=== PATIENT | male | born 1950 | race African-American/Black ===

== ENCOUNTER 2017-07-25 11:59 | Emergency (ER) | payer MEDICARE, OTHER ==
[~2017-07-25] VITALS: Ht 172.7 cm; Wt 68.0 kg
--- NOTE | 2017-07-25 12:26 | PHYS DOC ---
Past Medical History Past Medical History: High Cholesterol, Hypertension Past Surgical History: Other Additional Past Surgical Histo: rt side rib, rt tib/fib, neck surgery Smoking: Cigarettes, Greater than 1 pack/day Alcohol Use: Occasionally Drug Use: None Adult General Chief Complaint Chief Complaint: PAIN CONTROL HPI HPI Pleasant 67-year-old -Dutch male with history of hypertension and hyperlipidemia and a prior surgery to his neck which I suspect was a neck fusion who complains of neck pain for last 6 months. Patient has been under the care of his primary care physician and doctor [place] as been treating his pain with oral Lortab for the last 5-6 months. Patient's pain is described as a dull achy pain with radiation to the right side of the neck to the shoulder and arm. It is worse with movements of the forearm. It is better with immobilization and narcotics although the narcotics are not working as well as a head in the past. He denies any numbness and tingling to the forearm hand or arm. He denies any weakness within the mohel of the hand. He says the pain will work him up from sleep and is increased with repetitive motion and utilization. Patient admits for 5 years ago he sustained an injury to his neck after a fall of a ladder. He is an intermittent problems with his neck since that time. He denies any chest pain, shortness of breath, recent trauma, night sweats, weight loss, URI symptoms, cough, travel, recent antibodies or history of blood clots. Review of Systems Review of Systems Constitutional: Denies fever or chills [] Eyes: Denies change in visual acuity, redness, or eye pain [] HENT: Denies nasal congestion or sore throat [] Respiratory: Denies cough or shortness of breath [] Cardiovascular: No additional information not addressed in HPI [] GI: Denies abdominal pain, nausea, vomiting, bloody stools or diarrhea [] : Denies dysuria or hematuria [] Musculoskeletal: His main complaint is right-sided neck pain and arm pain. Integument: Denies rash or skin lesions [] Neurologic: Denies headache, focal weakness or sensory changes [] Endocrine: Denies polyuria or polydipsia [] Current Medications Current Medications Current Medications Medications (Trade) Dose Ordered Sig/Danyell Start Time Stop Time Status Last Admin Dose Admin Hydromorphone HCl (Dilaudid) 1 mg 1X ONCE 10/19/17 12:45 07/25/17 12:46 DC 07/25/17 12:52 1 MG Ketorolac Tromethamine (Toradol Im) 60 mg 1X ONCE 07/25/17 12:45 07/25/17 12:46 DC 07/25/17 12:52 60 MG Allergies Allergies Allergies Coded Allergies Type Severity Reaction Last Updated Verified No Known Drug Allergies 08/03/14 No Physical Exam Physical Exam Vital signs recorded on the chart at this time patient admitted to be hypertensive without hypoxia tachypnea or fever. Constitutional: Well developed, well nourished, in quietly in the bed pain is 9 of 10 HENT: Normocephalic, atraumatic, bilateral external ears normal, oropharynx moist, no oral exudates, nose normal. [] Eyes: PERRLA, EOMI, conjunctiva normal, no discharge. [] Neck: He has decreased range of motion likely secondary to the prior surgery and muscle pain. She has no obvious trauma to his neck, no rashes or changes in skin color or soft tissue swelling. Cardiovascular:Heart rate regular rhythm, no murmur [] Lungs & Thorax: Bilateral breath sounds clear to auscultation [] Skin: Warm, dry, no erythema, no rash. [] Back: Impression is tenderness to palpation over the rhomboid major and minor muscle groups as well as the superior belly of the trapezius muscle. There is no midline tenderness to palpation of the neck. Extremities: he has no obvious swelling no cyanosis no clubbing no edema. Patient has brisk capillary refill +2 peripheral pulses are intact +2 at the ulnar and radial arteries. Patient has normal sensation to light touch and proprioception to 2 point discretion of his hand. Patient does have increasing pain and throbbing within the forearms and hands with a positive Tinel's and Phalen sign. Neurologic: Alert and oriented X 3, normal motor function, normal sensory function, no focal deficits noted. [] Psychologic: Affect normal, judgement normal, mood normal. [] Current Patient Data Vital Signs Vital Signs Date Time Temp Pulse Resp B/P (MAP) Pulse Ox O2 Delivery O2 Flow Rate FiO2 07/25/17 12:52 16 96 Room Air 07/25/17 12:05 98.1 71 170/77 (108) 98.1 EKG EKG [] Radiology/Procedures Radiology/Procedures [] [facility] [address] [place] [address] IMAGING REPORT Signed PATIENT: MIGDALIA ROMANO ACCOUNT: [id number] : 1950 LOCATION: ER AGE: 67 SEX: M EXAM STATUS: REG ER ORD. PHYSICIAN: BRAD GAUTAM MD REASON: neck pain PROCEDURE: CT CERVICAL SPINE WO CONTRAST Indication neck and right arm pain. Axial images of the cervical spine were obtained. Images were reformatted in the coronal and sagittal planes. It should be noted that CT is relatively insensitive evaluating for disc disease in the cervical spine. The lung apices are clear. There is no soft tissue mass seen in the. No acute finding is seen. There is multilevel disc space narrowing. Osteophytes are seen at multiple levels. There is fusion at C4-5. There is slight left bony neural foraminal encroachment at C2-3. There is bilateral bony foraminal encroachment at C3-4. Left greater than right foraminal encroachment is seen at C4-5. Bilateral foraminal encroachment is seen at C5-6. Similarly there is some bilateral foraminal encroachment at C6-7. C7-T1 appears unremarkable. There is some suggested disc bulging at C3-4. No marked bony central canal narrowing is seen at any level. IMPRESSION: Spondylitic changes. There is foraminal encroachment, mild to moderate, at multiple levels as outlined above. An acute finding in the cervical spine is not seen. PQRS Compliance Statement: One or more of the following individualized dose reduction techniques were utilized for this examination: 1. Automated exposure control 2. Adjustment of the mA and/or kV according to patient size 3. Use of iterative reconstruction technique DICTATED and SIGNED BY: PRASAD LARA MD DATE: 07/25/17 6190 CC: SHAWNA SHEFFIELD; BRAD GAUTAM MD ~ Course & Med Decision Making Course & Med Decision Making Pertinent Labs and Imaging studies reviewed. (See chart for details) he presents with neck pain with radiation to the right shoulder and lower arm concerning presentation for possible cervical radiculopathy or impingement syndrome. At this point doubt DVT of the upper extremity or localized nerve entrapment at the brachial plexus. Patient does demonstrate some increased symptoms with Tinel's and Phalen's sign which means there may be a component of carpal tunnel syndrome with his symptoms. Patient's shoulder neck pain is not exacerbated by Spurling's provocative testing. Even his age and prior injury to his neck I will complete a CAT scan of the neck to ensure that there is no bony abnormalities like compression fracture contributing to his symptoms. If symptoms continue I would advise patient to complete an MRI of the neck with undressed to look for ligamentous involvement of his symptoms. [] Dragon Disclaimer Dragon Disclaimer This electronic medical record was generated, in whole or in part, using a voice recognition dictation system. Departure Departure Impression: Primary Impression: Chronic pain Additional Impression: Neck pain, chronic Disposition: 01 HOME, SELF-CARE Referrals: SHAWNA SHEFFIELD (PCP) Patient Instructions: Cervical Fusion, Cervical Sprain Additional Instructions: My discharge plan Follow up: In addition patient is asked to followup with their primary doctor, within a week for followup examination and to address patient's ongoing medical conditions. Patient is advised that in the Emergency Department primary complaints are addressed and only in light of known signs and symptoms. Patient should return immediately to the emergency department if new signs and symptoms develop or patient's condition worsens in any way. At time of discharge patient was in stable condition and had verbalized understanding of the discharge instructions. Scripts Oxycodone/Apap 5-325 (PERCOCET 5-325 MG TABLET) 1 Each Tablet 1-2 TAB PO Q4-6HRS, #12 TAB Prov: BRAD GAUTAM MD 07/25/17 Naproxen (NAPROSYN) 500 Mg Tablet 1 TAB PO BID, #14 TAB 1 Refill Prov: BRAD GAUTAM MD 07/25/17 Problem Qualifiers BRAD GAUTAM MD Jul 25, 2017 12:26
[2017-07-25] MEDS ORDERED: KETOROLAC 60 MG/2 ML INJ. IM ONE (12:45)
[2017-07-25] MEDS ORDERED: HYDROmorphone 2 MG/ML VIAL IM ONE (12:45)
--- NOTE | 2017-07-25 13:15 | RAD ---
Indication neck and right arm pain. Axial images of the cervical spine were obtained. Images were reformatted in the coronal and sagittal planes. It should be noted that CT is relatively insensitive evaluating for disc disease in the cervical spine. The lung apices are clear. There is no soft tissue mass seen in the. No acute finding is seen. There is multilevel disc space narrowing. Osteophytes are seen at multiple levels. There is fusion at C4-5. There is slight left bony neural foraminal encroachment at C2-3. There is bilateral bony foraminal encroachment at C3-4. Left greater than right foraminal encroachment is seen at C4-5. Bilateral foraminal encroachment is seen at C5-6. Similarly there is some bilateral foraminal encroachment at C6-7. C7-T1 appears unremarkable. There is some suggested disc bulging at C3-4. No marked bony central canal narrowing is seen at any level. IMPRESSION: Spondylitic changes. There is foraminal encroachment, mild to moderate, at multiple levels as outlined above. An acute finding in the cervical spine is not seen. PQRS Compliance Statement: One or more of the following individualized dose reduction techniques were utilized for this examination: 1. Automated exposure control 2. Adjustment of the mA and/or kV according to patient size 3. Use of iterative reconstruction technique
[2017-07-25] MEDS ORDERED: NAPR500T PO (13:28)
[2017-07-25] MEDS ORDERED: OXYC-323 PO (13:28)
[2017-07-25 13:46] VITALS: BP 177/82
== END 2017-07-25 14:14 | disposition home or self-care (01) ==
LOC: ER 11:59
DX: M54.2 Cervicalgia (principal); G89.29 Other chronic pain; M25.511 Pain in right shoulder; M79.601 Pain in right arm; I10 Essential (primary) hypertension; E78.00 Pure hypercholesterolemia, unspecified; Z98.890 Other specified postprocedural states; F17.210 Nicotine dependence, cigarettes, uncomplicated
CPT/HCPCS: 72125; 96372; 99284; J1170; J1885

== ENCOUNTER → 2017-08-19 | Outpatient (CLI) | payer OTHER, MEDICAID ==
[2017-07-25 13:46] VITALS: BP 177/82
[~2017-08-19] MED LIST: ACET500T68 PO; AMLO10TA2 PO; DULO60CA6 PO; FLUT9.9S NS; GABA-585 PO; HYDR-2868 PO; HYDR-971 PO; HYDR12.53 PO; MULT1TAB52 PO; NAPR500T PO; OXYC-323 PO; PRAV20TA2 PO
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
== END | disposition home or self-care (01) ==
LOC: PNCL 09:38
PROVIDERS: ATTEND Anesthesiology
DX: I10 Essential (primary) hypertension (principal); M46.82 Other specified inflammatory spondylopathies, cervical region; M54.12 Radiculopathy, cervical region; M79.601 Pain in right arm; F17.210 Nicotine dependence, cigarettes, uncomplicated
CPT/HCPCS: G0463

== ENCOUNTER → 2017-09-02 | Outpatient (CLI) | payer OTHER, MEDICAID ==
[~2017-09-02] MED LIST changes: +IOHEXOL 180 MG/ML 10 ML VIAL. ONE; +NAPR-683 PO; -NAPR500T PO; +methylPREDNISolone ACETATE 40 MG/ML VIAL. ONE; +methylPREDNISolone ACETATE 80 MG/ML VIAL. ONE
--- NOTE | 2017-09-02 19:47 | PAIN ---
DATE OF SERVICE: 09/02/2017 DIAGNOSES: 1. Cervical radiculopathy with cervical degenerative disk disease and post-cervical laminectomy syndrome. 2. Lumbar radiculopathy with lumbar degenerative disk disease. HISTORY OF PRESENT ILLNESS: The patient is a 67-year-old male who returns for followup status post evaluation and preauthorization for cervical epidural steroid injection. The patient reports still significant pain in the base of the neck, right upper extremity, radiating to posterior shoulder, base of the neck as well as the posterior upper arm, posterior forearm to the hand with some numbness and tingling, feeling more sharp and becoming constant. The patient reports pain is a 10 on scale of 10 at its worst, 8 on average and 6 at its least, is a 6 today. The patient reports no new motor or sensory deficits, also has some pain in the low back region, the posterior gluteus, posterolateral thigh, lateral anterior thigh, into the lower leg, in the medial calf and in the posterior calf. The patient reports it is sharp and becoming more constant as well, only on the right side. The patient reports no new motor or sensory deficits, no new bowel or bladder incontinence. It is awakening him from sleep in his neck and right upper extremity about every 6 hours, but he can reposition usually and get back to sleep without difficulty. PHYSICAL EXAMINATION: VITAL SIGNS: Today, his blood pressure 152/81, pulse 78, respirations 18, temperature 98.1 degrees Fahrenheit. Height is 5 feet 8 inches, weighs 153 pounds. GENERAL: The patient is awake, alert, oriented, appropriate, very pleasant demeanor. HEENT: Shows normocephalic, atraumatic. Extraocular movements are intact, symmetrical. Oral cavity shows mucous membranes moist and pink. Dentition is intact. NECK: Shows anterior throat supple without palpable lymphadenopathy noted. Swallow reflex is symmetrical. CHEST: Shows normal on inspection. Breath sounds are clear to auscultation bilaterally. HEART: Shows S1, S2 clear. No murmurs auscultated. ABDOMEN: Soft, nontender, nondistended. No palpable organomegaly is noted. No rebound or guarding demonstrated. BACK: Shows spine grossly in midline. Normal appearing thoracic kyphosis and lumbar lordotic curvature. Cervical lordotic curvature is normal as well. On inspection, paraspinous musculature in the cervical distribution is symmetrical. The patient shows good rotation of motion with both laterally greater than 45 degrees right and left well as extension and forward flexion without significant difficulty or pain reported. EXTREMITIES: The patient's upper extremities show deep tendon reflexes at 2+ in the biceps, triceps tendons. Motor exam is approximately 4 on a scale of 5 with right artificial insemination technician and biceps, triceps flexion and 5/5 on the left. Pulses are 2+ radial distribution. No peripheral edema is noted bilaterally. Options were discussed with the patient. The patient's old chart was reviewed. His current medication regimen updated. Current review of systems is updated today as well. We will proceed with a cervical epidural steroid injection today with fluoroscopic guidance. Risks were again discussed including, but not limited to bleeding, infection, possibility of epidural hematoma, subsequent neurological compromise, dural puncture, headaches, spinal cord and/or nerve damage, side effects of steroid medication and poor results regarding pain control. The patient understands and wished to proceed. The patient to return to clinic in approximately 2 weeks for followup, was counseled on return appointment, activity level and side effects to be aware of. DIAGNOSES: Cervical radiculopathy with cervical degenerative disk disease, post-cervical laminectomy syndrome. PROCEDURE: Cervical epidural steroid injection, translaminar approach at C6-C7 level using C-arm fluoroscopic guidance under sterile prep and drape using local anesthetic. MEDICATION INJECTED: A total of 120 mg Depo-Medrol plus 5 mL preservative-free normal saline and 2 mL of Isovue for contrast. CONDITION AT DISCHARGE: Stable. The patient tolerated procedure well, had no complications. LUIS RODRIGUEZ MD DR: ISAIAS/mason JOB#: [id number] / [id number]
== END | disposition home or self-care (01) ==
LOC: PNCL 11:02
PROVIDERS: ATTEND Anesthesiology
DX: M50.123 Cervical disc disorder at C6-C7 level with radiculopathy (principal); M51.16 Intervertebral disc disorders with radiculopathy, lumbar region
CPT/HCPCS: 62321; J1030; J1040

== ENCOUNTER → 2017-09-25 | Outpatient (CLI) | payer OTHER, MEDICAID ==
[~2017-09-25] MED LIST changes: -IOHEXOL 180 MG/ML 10 ML VIAL. ONE; -methylPREDNISolone ACETATE 40 MG/ML VIAL. ONE; -methylPREDNISolone ACETATE 80 MG/ML VIAL. ONE
--- NOTE | 2017-09-25 19:11 | PAIN ---
DATE OF SERVICE: 09/25/2017 DIAGNOSES: 1. Lumbar radiculopathy with lumbar degenerative disk disease. 2. Cervical radiculopathy with cervical degenerative disk disease and post-cervical laminectomy syndrome. HISTORY OF PRESENT ILLNESS: The patient is a 67-year-old male who returns for a followup status post cervical epidural steroid injection x 1 on 09/02. The patient did very well with this, about 75% improvement, still with some pain in the neck, but very minimal. He is increasing his range of motion with greater ease and comfort, occasional pain into the shoulders and right upper extremity, but only very rarely. The patient reports his pain in the neck is a 3 on a scale of 10 at its worst, least and on average and a 3 today. The patient's chief complaint is low back and right lower extremity pain; however, with pain radiating across the low back into the posterior gluteus, posterior thigh, posterior calf, to the ankle and foot with cramping, aching, burning pain that is becoming more noticeable, more constant in the foot, on and off, worse with walking, standing and changing from sitting to standing positions, but better with lying down or sitting. He sleeps about 7 hours a night without difficulty. The patient reports no loss of motor function, but significant fatigability to right lower extremity. He is walking with a cane in his left hand. The patient reports, otherwise, no new changes, better with sitting, again worse with walking and down the right leg as described in a radicular fashion in approximately L5-S1 dermatomal distribution. PHYSICAL EXAMINATION: VITAL SIGNS: Today, his blood pressure is 165/95, pulse 71, respirations 16, temperature is 98.0 degrees Fahrenheit, height is 5 feet 8 inches, weight is 158 pounds. GENERAL: The patient is awake, alert, oriented, appropriate, very pleasant demeanor. HEENT: Shows normocephalic, atraumatic. Extraocular movements are intact, symmetrical. Oral cavity shows mucous membranes moist and pink. Dentition is intact. NECK: Shows anterior throat supple without palpable lymphadenopathy noted. Swallow reflex symmetrical. CHEST: Shows normal on inspection. Breath sounds are clear to auscultation bilaterally. HEART: Shows S1, S2 clear. No murmurs auscultated. ABDOMEN: Soft, nontender, nondistended. No palpable organomegaly is noted. No rebound or guarding demonstrated. MUSCULOSKELETAL: Back shows spine grossly in the midline. Cervical lordotic curvature is normal as is the thoracic and lumbar lordotic curvatures and thoracic kyphotic curvature. The patient's neck shows good rotational motion both laterally greater than 45 degrees closer to 90 degrees with much better ease and comfort, much better rotational motion than on previous exam. Also, a full extension, flexion is performed without difficulty. The patient's low back shows good rotation in the lumbar spine, both laterally 10 degrees right and left as well as extension greater than 10 degrees, forward flexion at 45 degrees without difficulty. The patient's lower extremities show deep tendon reflexes 1+ in the patellar and tendo-calcaneus tendons. Motor exam is strong with approximately 4 on a scale 5 with the right lower extremity and 5/5 on the left. Peripheral pulses are 1+ posterior tibial and dorsalis pedis pulses. No peripheral edema is noted. No clubbing or cyanosis. Lower extremities are warm and dry to touch, equal in color and appearance. Straight leg raise noted to be positive on the right at about 40 degrees which is decreased with knee flexion, but not relieved. Left side is negative. Gaenslen's and Evans's maneuvers are negative bilaterally. PLAN: Options were discussed with the patient. The patient's old chart was reviewed as his current medication regimen and updated. Current review of systems updated today as well. We will preauthorize the patient for a lumbar epidural steroid injection with significant right L5-S1 dermatomal distribution radiculopathy with increasing fatigability and clinical radiculopathy in the right leg. The patient will return to the clinic once preauthorized. We will try Medrol Dosepak in the meantime. The patient was given instructions as well as side effects to be aware with the medication and will follow up as scheduled. LUIS RODRIGUEZ MD DR: ISAIAS/mason JOB#: [id number] / [id number]
== END | disposition home or self-care (01) ==
LOC: PNCL 11:15
PROVIDERS: ATTEND Anesthesiology
DX: M51.16 Intervertebral disc disorders with radiculopathy, lumbar region (principal); M50.10 Cervical disc disorder with radiculopathy, unspecified cervical region
CPT/HCPCS: G0463

== ENCOUNTER → 2017-10-09 | Outpatient (CLI) | payer OTHER, MEDICAID ==
[~2017-10-09] MED LIST changes: -ACET500T68 PO; -AMLO10TA2 PO; -DULO60CA6 PO; -FLUT9.9S NS; -GABA-585 PO; -HYDR-2868 PO; -HYDR-971 PO; -HYDR12.53 PO; +IOHEXOL 180 MG/ML 10 ML VIAL.; -MULT1TAB52 PO; -NAPR-683 PO; -OXYC-323 PO; -PRAV20TA2 PO; +methylPREDNISolone ACETATE 40 MG/ML VIAL.; +methylPREDNISolone ACETATE 80 MG/ML VIAL.
== END | disposition home or self-care (01) ==
LOC: PNCL 08:53
DX: M51.16 Intervertebral disc disorders with radiculopathy, lumbar region (principal); M96.1 Postlaminectomy syndrome, not elsewhere classified
CPT/HCPCS: 62323; J1030; J1040

== ENCOUNTER → 2017-10-23 | Outpatient (CLI) | payer OTHER, MEDICAID | END | disposition home or self-care (01) | LOC: PNCL 09:12 | DX: M51.16 Intervertebral disc disorders with radiculopathy, lumbar region (principal); M50.10 Cervical disc disorder with radiculopathy, unspecified cervical region | CPT/HCPCS: G0463 ==

== ENCOUNTER → 2020-03-03 | Outpatient (CLI) | payer MEDICARE, MEDICAID ==
[~2020-03-03] MED LIST changes: +ACET500T68 PO; +AMLO10TA8 PO; +DULO60CA6 PO; +FLUT9.9S NS; +GABA-585 PO; +HYDR-2868 PO; +HYDR-3164 PO; +HYDR12.575 PO; -IOHEXOL 180 MG/ML 10 ML VIAL.; +MULT-445 PO; +NAPR-683 PO; +OXYC1TAB15 PO; +PRAV20TA2 PO; -methylPREDNISolone ACETATE 40 MG/ML VIAL.; -methylPREDNISolone ACETATE 80 MG/ML VIAL.
== END | disposition home or self-care (01) ==
LOC: LAB 07:55
PROVIDERS: ATTEND Surgery Vascular Surgery
DX: Z01.818 Encounter for other preprocedural examination (principal); Z11.59 Encounter for screening for other viral diseases; I70.213 Atherosclerosis of native arteries of extremities with intermittent claudication, bilateral legs
CPT/HCPCS: C9803; U0003; 36415

== ENCOUNTER 2020-03-08 09:12 | Outpatient (CLI) | payer MEDICARE, MEDICAID ==
[~2020-03-08] VITALS: Ht 172.7 cm; Wt 70.3 kg
[2020-03-08] VITALS (10 sets, daily range): BP systolic 152–191; BP diastolic 66–87
[2020-03-08] MEDS ORDERED: hydrALAZINE 20 MG/ML VIAL. ONE (10:43)
[2020-03-08] MEDS ORDERED: hydrALAZINE 20 MG/ML VIAL. IVP ONE (10:45)
[2020-03-08 10:47] LABS: HEMATOCRIT 34.9 % (39.0-53.0); HEMOGLOBIN 11.9 g/dL (13.0-17.5); RED BLOOD COUNT 3.64 x10^6/uL (4.30-5.70); RED CELL DISTRIBUTION WIDTH 14.6 % (11.5-14.5); WHITE BLOOD COUNT 3.8 x10^3/uL (4.0-11.0)
[2020-03-08 10:56] LABS: PROTHROMBIN TIME PATIENT 12.6 SEC (11.7-14.0)
[2020-03-08 11:00] LABS: CALCIUM 8.8 mg/dL (8.5-10.1); CREATININE 1.4 mg/dL (0.7-1.3); GFR 60.6
--- NOTE | 2020-03-08 12:00 | PDOC ---
Provider Note Provider Note Pt seen and examined in the pre-op area and H&P reviewed -- no changes to the office H&P He has bilateral LE claudication and previous imaging suggests SFA occlusion bilaterally We discussed the procedure / risks / benefits / alternatives and he wishes to proceed plan right TORTILLA MAKER access, bilateral runoff and possible left leg intervention consent signed. ASA 2 Airway 2 Justicifation of Admission Dx: Justifications for Admission: Justification of Admission Dx: No JEANMARIE,KIRSTEN Aguirre MD Mar 08, 2020 12:00
[2020-03-08] MEDS ORDERED: LIDOCAINE 1% Multi-Dose 20 ML VIAL. ONE (12:11)
[2020-03-08] MEDS ORDERED: IODIXANOL 320 MG/ML 100 ML VIAL. ONE (12:11)
[2020-03-08] MEDS ORDERED: HEPARIN for IV BOLUS 10,000 UNIT/10 ML VIAL. ONE (12:15)
[2020-03-08] MEDS ORDERED: LIDOCAINE 1% Multi-Dose 20 ML VIAL. INJ ONE (12:15)
[2020-03-08] MEDS ORDERED: MIDAZOLAM HCL/PF 2 MG/2 ML VIAL. IV ONE (12:15)
[2020-03-08] MEDS ORDERED: fentaNYL PF VIAL 100 MCG/2 ML VIAL IV ONE (12:15)
[2020-03-08] MEDS ORDERED: IODIXANOL 320 MG/ML 100 ML VIAL. IART ONE (12:15)
[2020-03-08] MEDS ORDERED: CONTRAST GIVEN. MC PRN (12:30)
--- NOTE | 2020-03-08 13:55 | PDOC4 ---
OPERATIVE NOTE Date: Date: Mar 08, 2020 Pre-Op Diagnosis: atherosclerosis of bilateral lower extremity with bilateral LE claudication abnormal ANTHONY bilaterally Post-Op Diagnosis: same as above Procedure Performed: 1) ultrasound guided right femoral access 2) 2nd order catheter placement below the diaphragm (access right ACCOUNTANT PROPERTY catheter tip left ACCOUNTANT PROPERTY) 3) aortogram S&I 4) bilateral LE runoff S&I 5) placement of closure device right ACCOUNTANT PROPERTY (5F Mynx) Surgeon: Benedict Murry MD Vascular surgery Anesthesia Type: Conscious sedation under surgeon and RN supervision using intravenous fentanyl and Versed Total 30 minutes Versed 1.5 mg fentanyl 100 mcg Blood Loss: Minimal Specimans Obtained: None Findings: There was widely patent without visceral stenosis on single AP view, no aneurysm or significant aortic occlusive disease Bilateral common iliac arteries appear widely patent Left external iliac artery has very tortuous area with a possible moderate 50% stenosis in the distal portion, right external leg artery appears widely patent but small, may be circumferential disease Bilateral common femoral arteries show moderate to severe stenosis and bilateral profundofemoral artery show high-grade stenosis at their origins Bilateral superficial femoral arteries are occluded. Both reconstitute above the knee but the vessels are small, both have healthy below the knee popliteal artery reconstitutions with widely patent tibial runoff to both feet Complications: None Operative Note: Patient was taken to the Ultrasonographer and placed supine on the table. The groins were prepped and draped in the usual sterile fashion. An appropriate timeout was performed. Conscious sedation was induced under surgeon and RN supervision using intravenous fentanyl and Versed after placement of appropriate monitoring devices was confirmed. Attention was directed the right common femoral artery was fluoroscopically marked over the femoral head and found to be patent with flow. An image of the vessels taken and saved for the medical record. Under real-time ultrasound guidance local anesthetic was injected in the right groin and the right common femoral artery was accessed in retrograde fashion using micropuncture needle. This was used to pass a micropuncture wire to the iliac artery under fluoroscopic guidance and exchanged the micropuncture needle for a micropuncture sheath which back blood easily. These were used to introduce a Bentson wire into the abdominal aorta and this was used to exchange the micropuncture sheath for a 5 Bhutanese sheath which was a spirated and flushed without difficulty. These were used to introduce a flush catheter to the suprarenal abdominal aorta and aortogram was obtained. The cath was pulled back to the or bifurcation oblique pelvic angiograms were obtained. I used the catheter to hook the aorta bifurcation and passed a wire and then a glide catheter to the left common femoral artery. Left leg runoff to the foot was obtained. The glide catheter was removed and I used the right femoral sheath to obtain right leg runoff. The right femoral sheath was aspirated flush the difficulty and then used to deliver a 5 Bhutanese minx closure device which was deployed at the right femoral artery access site with excellent hemostasis. Patient was escorted to recovery in stable condition. He will need bilateral iliofemoral and profunda femoral endarterectomies possible femoropopliteal bypasses. Will obtain a cardiac risk stratification vein mapping and plan for surgery in the near future KIRSTEN MURRY MD Mar 08, 2020 13:54
--- NOTE | 2020-03-08 15:22 | NUR ---
Discharge Note: MIGDALIA ROMANO LCCL Discharge instructions and discharge home medications reviewed with Patient and a copy given. All questions have been answered and understanding verbalized. The following instructions and handouts were given: Moderate sedation and groin care site. Discontinued lines and drains: [facility] IV dc'd and tip intact. Patient discharged to home with [facility] via private vehicle.
== END 2020-03-08 15:43 | disposition home or self-care (01) ==
LOC: CCL 09:12
PROVIDERS: ATTEND Surgery Vascular Surgery
DX: I70.213 Atherosclerosis of native arteries of extremities with intermittent claudication, bilateral legs (principal); Z79.899 Other long term (current) drug therapy
CPT/HCPCS: 36246; 36415; 75625; 75716; 76937; 80048; 85027; 85610; 99152; 99153; C1713; C1769; C1892; C1894; G0269; J0360; J1644; J2250; J3010; J3490; Q9967; 36245

== ENCOUNTER 2021-05-31 07:43 | Emergency (ER) | payer MEDICARE, MEDICAID ==
[~2021-05-31] VITALS: Ht 170.2 cm; Wt 61.3 kg
[~2021-05-31 07:43] MED LIST changes: +AMLO-187 PO; -AMLO10TA8 PO
[2021-05-31] MEDS ORDERED: IV NORMAL SALINE 1000ML BAG 1,000 ML IV ONE (08:15)
[2021-05-31 08:37] LABS: BASO # 0.1 x10^3/uL (0.0-0.2); BASO % 1 % (0-3); EOS # 0.2 x10^3/uL (0.0-0.7); EOS % 3 % (0-3); HEMATOCRIT 31.8 % (39.0-53.0); HEMOGLOBIN 10.9 g/dL (13.0-17.5); LYMPH # 0.6 x10^3/uL (1.0-4.8); LYMPH % 9 % (24-48); MEAN CORPUSCULAR HEMOGLOBIN 33 pg (25-35); MEAN CORPUSCULAR HGB CONC 34 g/dL (31-37); MEAN CORPUSCULAR VOLUME 96 fL (79-100); MONO # 1.1 x10^3/uL (0.0-1.1); MONO % 15 % (0-9); NEUT # 5.2 x10^3/uL (1.8-7.7); NEUT % 73 % (31-73); PLATELET COUNT 271 x10^3/uL (140-400); RED BLOOD COUNT 3.32 x10^6/uL (4.30-5.70); RED CELL DISTRIBUTION WIDTH 14.8 % (11.5-14.5); WHITE BLOOD COUNT 7.1 x10^3/uL (4.0-11.0)
[2021-05-31 08:44] LABS: CALCIUM 8.8 mg/dL (8.5-10.1); CREATININE 2.3 mg/dL (0.7-1.3); GFR 34.1; POTASSIUM 4.7 mmol/L (3.5-5.1)
[2021-05-31 08:50] LABS: ALBUMIN 2.3 g/dL (3.4-5.0); ALBUMIN/GLOBULIN RATIO 0.5 (1.0-1.7); TOTAL BILIRUBIN 0.2 mg/dL (0.2-1.0); TOTAL PROTEIN 6.7 g/dL (6.4-8.2)
[2021-05-31 09:35] LABS: CLARITY,URINE BLOODY; COLOR,URINE RED
[2021-05-31 09:45] LABS: BACTERIA,URINE FEW /HPF (0-FEW); RBC,URINE TNTC /HPF (0-2)
--- NOTE | 2021-05-31 10:12 | RAD ---
EXAM: Abdomen and pelvis CT without intravenous contrast. HISTORY: Hematuria. TECHNIQUE: Computed tomographic images of the abdomen and pelvis were obtained without contrast. Mult iplanar reformatting was performed. *One or more of the following individualized dose reduction techniques were utilized for this examina tion: 1. Automated exposure control. 2. Adjustment of the mA and/or kV according to patient size. 3. Use of iterative reconstruction technique. COMPARISON: None. FINDINGS: Evaluation of the lower thorax demonstrates bilateral posterior dependent and basilar atele ctasis. There is emphysema. There is cardiomegaly. No hepatic lesion is seen. The gallbladder, pancre as and adrenal glands are unremarkable. There are multiple splenic granulomas. There is moderate left hydronephrosis and hydroureter extending to the bladder. No obstructing stone is seen. No solid or cystic renal lesion is seen. There is urinary bladder wall thickening. The prost ate is absent. There is no appendicitis. There is no bowel obstruction. There is no abnormal bowel wall thickening. There is heavily calcified atherosclerotic plaque involving the aorta and main aortic branch vessels. Evaluation for stenosis is limited in the absence of contrast. No aneurysm is seen. There is no lymp hadenopathy. There is mild body wall edema and mesenteric stranding. There is a small incidental intramuscular lip nellie within the lateral right proximal thigh. There is degenerative change involving the spine. There is no acute or suspicious osseous lesion. IMPRESSION: 1. Moderate left hydronephrosis and hydroureter. No convincing obstructing lesion is seen. CT urograp hy may be useful if this concern for an occult obstructing urothelial lesion. There is also bladder w all thickening suggesting cystitis. Correlate with urinalysis. 2. No evidence of nephroureterolithiasis. Electronically signed by: Lety Beth MD (05/31/2021 10:09 AM) [id number]
--- NOTE | 2021-05-31 13:08 | ED.ADGEN ---
Past Medical History Past Medical History: High Cholesterol, Hypertension Past Surgical History: Other Additional Past Surgical Histo: rt side rib, rt tib/fib, neck surgery Smoking Status: Current Every Day Smoker Additional Information: 1 PPD Alcohol Use: Occasionally Drug Use: None General Adult EDM: Chief Complaint: PAIN ON URINATION HPI: HPI: Patient is a 70 year old male coming in for gross hematuria. Patient states over the past couple weeks he had a couple of drops of blood in his urine, denies any clots. Patient states that he woke up this morning he went to urinate and noticed his blood. Patient denies any blood thinner use, discharge, trauma, testicular pain, or abdominal pain. Patient states that he has some discomfort in his penis. Has a history of prostate cancer and is status post prostatectomy in 2018, and radiation in 2019. Review of Systems: Review of Systems: All other systems within normal limits except for as noted in the HPI Current Medications: Current Medications Medications (Trade) Dose Ordered Sig/Danyell Start Time Stop Time Status Last Admin Dose Admin Sodium Chloride 1,000 ml @ 1,000 mls/hr 1X ONCE 05/31/21 08:15 05/31/21 09:14 DC 05/31/21 08:18 1,000 MLS/HR Allergies: Allergies: Allergies Coded Allergies Type Severity Reaction Last Updated Verified No Known Drug Allergies 08/03/14 No Physical Exam: PE: Constitutional: Well developed, well nourished, no acute distress, non-toxic appearance. [] HENT: Normocephalic, atraumatic, bilateral external ears normal, nose normal. [] Eyes: PERRLA, conjunctiva normal, no discharge. [] Neck: No rigidity, supple, no stridor. [] Cardiovascular: Regular rate and rhythm, brisk cap refill [] Lungs & Thorax: Non labored symmetric respirations, no tachypnea or respiratory distress [] Abdomen: Soft, nondistended. Skin: Warm, dry, no erythema, no rash. [] Back: Unremarkable Extremities: No deformities, range of motion grossly intact, no lower extremity edema [] Neurologic: Alert and oriented X 3, no focal deficits noted. [] Psychologic: Affect normal, judgement normal, mood normal. [] Current Patient Data: Labs: Laboratory Tests Test 05/31/21 08:30 05/31/21 09:08 White Blood Count 7.1 x10^3/uL (4.0-11.0) Red Blood Count 3.32 x10^6/uL (4.30-5.70) L Hemoglobin 10.9 g/dL (13.0-17.5) L Hematocrit 31.8 % (39.0-53.0) L Mean Corpuscular Volume 96 fL (79-100) Mean Corpuscular Hemoglobin 33 pg (25-35) Mean Corpuscular Hemoglobin Concent 34 g/dL (31-37) Red Cell Distribution Width 14.8 % (11.5-14.5) H Platelet Count 271 x10^3/uL (140-400) Neutrophils (%) (Auto) 73 % (31-73) Lymphocytes (%) (Auto) 9 % (24-48) L Monocytes (%) (Auto) 15 % (0-9) H Eosinophils (%) (Auto) 3 % (0-3) Basophils (%) (Auto) 1 % (0-3) Neutrophils # (Auto) 5.2 x10^3/uL (1.8-7.7) Lymphocytes # (Auto) 0.6 x10^3/uL (1.0-4.8) L Monocytes # (Auto) 1.1 x10^3/uL (0.0-1.1) Eosinophils # (Auto) 0.2 x10^3/uL (0.0-0.7) Basophils # (Auto) 0.1 x10^3/uL (0.0-0.2) Sodium Level 138 mmol/L (136-145) Potassium Level 4.7 mmol/L (3.5-5.1) Chloride Level 105 mmol/L (98-107) Carbon Dioxide Level 25 mmol/L (21-32) Anion Gap 8 (6-14) Blood Urea Nitrogen 33 mg/dL (8-26) H Creatinine 2.3 mg/dL (0.7-1.3) H Estimated GFR (Cockcroft-Gault) 34.1 BUN/Creatinine Ratio 14 (6-20) Glucose Level 91 mg/dL (70-99) Calcium Level 8.8 mg/dL (8.5-10.1) Total Bilirubin 0.2 mg/dL (0.2-1.0) Aspartate Amino Transferase (AST) 35 U/L (15-37) Alanine Aminotransferase (ALT) 33 U/L (16-63) Alkaline Phosphatase 84 U/L (46-116) Total Protein 6.7 g/dL (6.4-8.2) Albumin 2.3 g/dL (3.4-5.0) L Albumin/Globulin Ratio 0.5 (1.0-1.7) L Urine Collection Type Unknown Urine Color Red Urine Clarity Bloody Urine pH (<5.0-8.0) Urine Specific [place] (1.000-1.030) Urine Protein mg/dL (NEG-TRACE) Urine Glucose (UA) mg/dL (NEG) Urine Ketones (Stick) mg/dL (NEG) Urine Blood (NEG) Urine Nitrite (NEG) Urine Bilirubin (NEG) Urine Urobilinogen Dipstick mg/dL (0.2 mg/dL) Urine Leukocyte Esterase (NEG) Urine RBC Tntc /HPF (0-2) Urine WBC 5-10 /HPF (0-4) Urine Bacteria Few /HPF (0-FEW) Laboratory Tests 05/31/21 08:30 Laboratory Tests 05/31/21 08:30 Vital Signs: Vital Signs Date Time Temp Pulse Resp B/P (MAP) Pulse Ox O2 Delivery O2 Flow Rate FiO2 05/31/21 11:36 60 198/92 (127) 99 Room Air 05/31/21 07:43 98.0 17 98.0 EKG: EKG: [] Heart Score: C/O Chest Pain: No Risk Factors: Risk Factors: DM, Current or recent (<one month) smoker, HTN, HLP, family history of CAD, obesity. Risk Scores: Score 0 - 3: 2.5% MACE over next 6 weeks - Discharge Home Score 4 - 6: 20.3% MACE over next 6 weeks - Admit for Clinical Observation Score 7 - 10: 72.7% MACE over next 6 weeks - Early Invasive Strategies Radiology/Procedures: Radiology/Procedures: [facility] [address] [place] [address] IMAGING REPORT Signed PATIENT: MIGDALIA ROMANO LACCOUNT: [id number] : 1950 LOCATION: ER AGE: 70 SEX: M EXAM STATUS: REG ER ORD. PHYSICIAN: AMEENA WALSH MD REASON: hematuria PROCEDURE: CT ABDOMEN PELVIS WO CONTRAST EXAM: Abdomen and pelvis CT without intravenous contrast. HISTORY: Hematuria. TECHNIQUE: Computed tomographic images of the abdomen and pelvis were obtained without contrast. Multiplanar reformatting was performed. *One or more of the following individualized dose reduction techniques were utilized for this examination: 1. Automated exposure control. 2. Adjustment of the mA and/or kV according to patient size. 3. Use of iterative reconstruction technique. COMPARISON: None. FINDINGS: Evaluation of the lower thorax demonstrates bilateral posterior dep endent and basilar atelectasis. There is emphysema. There is cardiomegaly. No hepatic lesion is seen. The gallbladder, pancreas and adrenal glands are unremarkable. There are multiple splenic granulomas. There is moderate left hydronephrosis and hydroureter extending to the bladder. No obstructing stone is seen. No solid or cystic renal lesion is seen. There is urinary bladder wall thickening. The prostate is absent. There is no appendicitis. There is no bowel obstruction. There is no abnormal bowel wall thickening. There is heavily calcified atherosclerotic plaque involving the aorta and main aortic branch vessels. Evaluation for stenosis is limited in the absence of contrast. No aneurysm is seen. There is no lymphadenopathy. There is mild body wall edema and mesenteric stranding. There is a small incidental intramuscular lipoma within the lateral right proximal thigh. There is degenerative change involving the spine. There is no acute or suspicious osseous lesion. IMPRESSION: 1. Moderate left hydronephrosis and hydroureter. No convincing obstructing lesion is seen. CT urography may be useful if this concern for an occult obstructing urothelial lesion. There is also bladder wall thickening suggesting cystitis. Correlate with urinalysis. 2. No evidence of nephroureterolithiasis. Electronically signed by: Lety Ribera MD (05/31/2021 10:09 AM) [id number] DICTATED and SIGNED BY: LETY RIBERA MD DATE: 05/31/21 [id number] 0 Course & Med Decision Making: Course & Med Decision Making Spoke with Dr. Michelle, patient's primary care provider. Baseline creatinine around 1.5-1.6. Was 1.67 February 28 of this year. Now is 2.3. Discussed with transfer due to not having urology and the possibility of a mass lesion causing hydronephrosis in the setting of a patient with a previous prostate neoplasm. Called around to [facility], [facility], and [facility]. [facility] stated they might have a bed in a few hours and also that they will consult her urologist to determine whether he needs inpatient or close follow-up. Other investigation at the transfer center they found that he has an appointment with a urologist scheduled for tomorrow morning, patient is unaware of this appointment. He states that he was going to follow-up with his primary care provider tomorrow. Patient was given the information about his follow-up tomorrow with the neurologist. Urology and [facility] stated they are fine with him being discharged to follow-up in clinic as long as his vital signs are stable, patient's vital signs have been stable throughout the duration of his emergency department stay other than hypertension but he has not taken his home blood pressure medications yet today. Dragon Disclaimer: Dragon Disclaimer: This electronic medical record was generated, in whole or in part, using a voice recognition dictation system. Departure Departure Impression: Primary Impression: Hematuria Disposition: 01 HOME / SELF CARE / HOMELESS Condition: STABLE Referrals: SARAH BLANK MD (PCP) Patient Instructions: Hematuria, Adult Additional Instructions: Follow-up with Dr. Rico Sainz tomorrow at 11:30 AM. Return to nearest emergency department if you are unable to urinate. Your appointment tomorrow is with Dr. Rico Sainz at the [address] [place] [address] Phone number: [phone] AMEENA WALSH MD May 31, 2021 13:08
[2021-05-31 13:36] VITALS: BP 205/94
== END 2021-05-31 14:09 | disposition home or self-care (01) ==
LOC: ER 07:43
DX: R31.9 Hematuria, unspecified (principal); E78.00 Pure hypercholesterolemia, unspecified; I10 Essential (primary) hypertension; F17.200 Nicotine dependence, unspecified, uncomplicated
CPT/HCPCS: 36415; 74176; 80053; 81001; 85025; 87086; 96360; 96361; 99285; J7030